=== PATIENT | male | born 1945 | race Caucasian/White ===

== ENCOUNTER 2019-05-24 08:02 | Observation (INO) | payer MEDICARE ==
[~2019-05-24] VITALS: Ht 175.3 cm; Wt 88.0 kg
[2019-05-24] MEDS ORDERED: SODIUM CHLORIDE 0.9% 1,000 ML IV SCH (08:25)
[2019-05-24 08:29] VITALS: BP 154/107
[2019-05-24] MEDS ORDERED: APIX5TAB PO (08:44)
[2019-05-24] MEDS ORDERED: AMIO200T42 PO (08:44)
[2019-05-24] MEDS ORDERED: METO25TA91 PO (08:45)
[2019-05-24] MEDS ORDERED: COLC0.6T37 PO (08:49)
[2019-05-24] MEDS ORDERED: EPHEDRINE 50 MG/ML, 1ML IVPush PRN (09:00)
[2019-05-24] MEDS ORDERED: HYDROcodone/APAP 7.5-325MG/15ML UDC PO PRN (09:00)
[2019-05-24] MEDS ORDERED: hydrALAzine 20 MG/ML, 1ML IV PRN (09:00)
[2019-05-24] MEDS ORDERED: PROMETHAZINE 25 MG/ML, 1ML IV PRN (09:00)
[2019-05-24] MEDS ORDERED: ONDANSETRON 2MG/ML, 2ML IV PRN (09:00)
[2019-05-24] MEDS ORDERED: FENTANYL PF 100 MCG/2ML IV PRN (09:00)
[2019-05-24] MEDS ORDERED: HYDROmorphone 2 MG/ML, 1ML IVPush PRN (09:00)
[2019-05-24] MEDS ORDERED: ACETAMINOPHEN 325 MG TABLET PO PRN ×2 (09:00→12:00)
[2019-05-24] MEDS ORDERED: MEPERIDINE/PF 25MG/ML,1ML IVPush PRN (09:00)
[2019-05-24] MEDS ORDERED: LABETALOL 5MG/ML, 20ML IV PRN (09:00)
[2019-05-24] MEDS ORDERED: FENTANYL PF 100 MCG/2ML ONE ×2 (09:59→11:32)
[2019-05-24] MEDS ORDERED: DEXAMETHASONE 4 MG/ML, 1ML ONE (11:00)
[2019-05-24] MEDS ORDERED: PROPOFOL 10 MG/ML, 20ML ONE (11:00)
[2019-05-24] MEDS ORDERED: ONDANSETRON 2MG/ML, 2ML ONE (11:00)
[2019-05-24] MEDS ORDERED: SUCCINYLCHOLINE 20 MG/ML, 10ML ONE (11:00)
[2019-05-24] MEDS ORDERED: CEFAZOLIN 1,000 MG ONE (11:00)
[2019-05-24] MEDS ORDERED: ROCURONIUM 10MG/ML,5ML ONE (11:00)
[2019-05-24] MEDS ORDERED: GLYCOPYRROLATE 0.2MG/1ML, 5ML ONE (11:00)
[2019-05-24] MEDS ORDERED: NEOSTIGMINE 1 MG/ML, 10ML ONE (11:00)
[2019-05-24] MEDS ORDERED: PHENYLEPHRINE 10 MG/ML ONE (11:17)
[2019-05-24] MEDS ORDERED: APIXABAN 5 MG TABLET ONE (12:27)
[2019-05-24] MEDS: APIXABAN 5 MG TABLET PO SCH ×2 (12:30→20:05)
[2019-05-24] MEDS: METOPROLOL SUCCINATE 25 MG TAB.ER.24H PO SCH (20:04)
[2019-05-24 20:05] VITALS: BP 126/85
[2019-05-24] MEDS ORDERED: COLCHICINE 0.6 MG CAPSULE PO SCH (21:00)
[2019-05-24] MEDS ORDERED: APIXABAN 5 MG TABLET PO SCH (21:00)
[2019-05-25 01:20] VITALS: BP 130/86
[2019-05-25 08:19] VITALS: BP 128/87
[2019-05-25] MEDS ORDERED: AMIO200T42 PO (09:20)
[2019-05-25] MEDS: APIXABAN 5 MG TABLET PO SCH (09:29)
[2019-05-25] MEDS: METOPROLOL SUCCINATE 25 MG TAB.ER.24H PO SCH (09:29)
== END 2019-05-25 11:46 | disposition home or self-care (01) ==
LOC: CACL 08:02 → ORIP 11:59 → 5SO 13:22 → DCLOUNGE 05-25 11:38
PROVIDERS: ADMIT Internal Medicine Cardiovascular Disease; ATTEND Internal Medicine Cardiovascular Disease
DX: I48.91 Unspecified atrial fibrillation (principal); I48.92 Unspecified atrial flutter; G47.33 Obstructive sleep apnea (adult) (pediatric); Z79.01 Long term (current) use of anticoagulants
CPT/HCPCS: 85347; 93306; 93462; 93613; 93621; 93653; 93662; C1730; C1732; C1759; C1766; C1893; C1894; G0378; J0330; J0690; J1100; J2370; J2405; J2704; J2710; J3010